=== PATIENT | female | born 1995 | race Two or more races ===

== ENCOUNTER 2023-10-07 14:11 | Emergency (ER) | payer OTHER ==
[~2023-10-07] VITALS: Ht 165.1 cm; Wt 89.3 kg
[2023-10-07 14:37] VITALS: BP 130/76; PULSE 122
[2023-10-07 14:47] VITALS: RESP 21; O2SAT 97
[2023-10-07] MEDS ORDERED: AMOX500T3 PO (15:36)
== END 2023-10-07 16:05 | disposition home or self-care (01) ==
LOC: ER 14:13
DX: J03.90 Acute tonsillitis, unspecified (principal)